=== PATIENT | female | born 1945 | race Caucasian/White ===

== ENCOUNTER → 2021-12-10 | Outpatient (CLI) | payer MEDICARE | LOC: ECHO 10:31 | DX: I25.119 Atherosclerotic heart disease of native coronary artery with unspecified angina pectoris (principal); I35.0 Nonrheumatic aortic (valve) stenosis; R94.39 Abnormal result of other cardiovascular function study | CPT/HCPCS: 78452; 93017; A9502; J2785 ==

== ENCOUNTER → 2021-12-17 | Outpatient (CLI) | payer MEDICARE ==
[2021-12-17 10:18] LABS: HEMOGLOBIN 13.3 gm/dl (12.3-15.3); RED BLOOD COUNT 4.44 M/UL (4.00-5.10)
[2021-12-17 10:42] LABS: WHITE BLOOD COUNT 25.7 K/UL (4.5-11.0)
[2021-12-17 10:44] LABS: BUN/CREATININE RATIO 14 (0-10)
== END ==
LOC: LAB 09:38
PROVIDERS: Internal Medicine Cardiovascular Disease
DX: Z01.818 Encounter for other preprocedural examination (principal); R94.39 Abnormal result of other cardiovascular function study; I25.119 Atherosclerotic heart disease of native coronary artery with unspecified angina pectoris; K44.9 Diaphragmatic hernia without obstruction or gangrene; R93.7 Abnormal findings on diagnostic imaging of other parts of musculoskeletal system; I77.819 Aortic ectasia, unspecified site
CPT/HCPCS: 36415; 71046; 80048; 85025